=== PATIENT | female | born 1970 | race Hispanic/Latino ===

== ENCOUNTER → 2018-03-27 | Outpatient (CLI) | payer OTHER ==
[~2018-03-27] MED LIST: DIVA250T4 PO
== END | disposition home or self-care (01) ==
LOC: RAH 08:35
PROVIDERS: ATTEND Physical Medicine & Rehabilitation
DX: M72.2 Plantar fascial fibromatosis (principal)
CPT/HCPCS: 73650

== ENCOUNTER → 2018-09-17 | Outpatient (CLI) | payer OTHER | END | disposition home or self-care (01) | LOC: RAH 16:11 | PROVIDERS: ATTEND Physical Medicine & Rehabilitation | DX: M47.26 Other spondylosis with radiculopathy, lumbar region (principal) | CPT/HCPCS: 72100 ==

== ENCOUNTER → 2018-10-09 | Outpatient (CLI) | payer OTHER | END | disposition home or self-care (01) | LOC: RAH 16:20 | PROVIDERS: ATTEND Anesthesiology Pain Medicine | DX: M72.2 Plantar fascial fibromatosis (principal) | CPT/HCPCS: 73650 ==

== ENCOUNTER → 2019-01-14 | Outpatient (CLI) | payer OTHER | END | disposition home or self-care (01) | LOC: RAH 09:49 | PROVIDERS: ATTEND Nurse Practitioner Adult Health | DX: Z12.31 Encounter for screening mammogram for malignant neoplasm of breast (principal) | CPT/HCPCS: 77067 ==

== ENCOUNTER 2019-05-07 21:57 | Emergency (ER) | payer OTHER ==
[2019-05-07] MEDS ORDERED: ONDANSETRON HCL 4 MG/2 ML VIAL ONE (22:23)
[2019-05-07 22:33] LABS: BASOPHILS % (AUTO) 0.7 % (0.0-5.0); EOSINOPHILS % (AUTO) 1.1 % (0.0-8.0); MEAN CORPUSCULAR HEMOGLOBIN 30.6 pg (27.0-33.0); MEAN CORPUSCULAR HGB CONC 33.6 g/dL (32.0-36.0); MEAN CORPUSCULAR VOLUME 90.8 fL (79-99); MONOCYTES % (AUTO) 6.7 % (3.0-13.0); NEUTROPHILS % (AUTO) 50.5 % (40.0-77.0); PLATELET COUNT (AUTO) 266 K/uL (130-400); RED BLOOD CELL COUNT(AUTO) 4.18 MIL/uL (4.00-5.50); RED CELL DISTRIBUTION WIDTH 14.4 % (11.0-15.5); WHITE BLOOD COUNT (AUTO) 9.1 K/uL (4.8-10.8)
[2019-05-07 22:37] LABS: CREATININE 0.5 mg/dL (0.5-1.5); POTASSIUM 3.6 mmol/L (3.5-5.1)
[2019-05-07 22:41] LABS: ALBUMIN 3.3 g/dL (3.5-5.0); BILIRUBIN,TOTAL 0.5 mg/dL (0.2-1.0); TOTAL PROTEIN, SERUM 7.4 g/dL (6.0-8.3)
[2019-05-07] MEDS ORDERED: MAG HYDROX/AL HYDROX/SIMETH ES 30 ML SUSP UDCUP ONE (23:30)
[2019-05-07] MEDS ORDERED: LIDOCAINE HCL 2% VISCOUS 15 ML UDCUP ONE (23:30)
[2019-05-07] MEDS ORDERED: FAMOTIDINE/PF 20 MG/2 ML VIAL IV ONE (23:31)
[2019-05-08] MEDS ORDERED: ONDA4TAB4 PO (16:48)
[2019-05-09] MEDS ORDERED: SUCR1TAB2 PO (09:55)
[2019-05-09] MEDS ORDERED: ACET-2743 PO (09:55)
[2019-05-09] MEDS ORDERED: ESOM40CA PO (09:55)
== END 2019-05-08 00:18 | disposition home or self-care (01) ==
LOC: EDH 21:57
DX: K29.70 Gastritis, unspecified, without bleeding (principal); Z90.49 Acquired absence of other specified parts of digestive tract; Z88.5 Allergy status to narcotic agent; Z88.8 Allergy status to other drugs, medicaments and biological substances
CPT/HCPCS: 36415; 80053; 83690; 84484; 85025; 93005; 96374; 96375; 99285; J2405; J3490

== ENCOUNTER 2019-05-09 07:52 | Day surgery (SDC) | payer OTHER ==
[2019-05-09] VITALS (7 sets, daily range): BP systolic 126–143; BP diastolic 71–85
[~2019-05-09] VITALS: Ht 160 cm; Wt 161.5 kg
[~2019-05-09 07:52] MED LIST changes: +ONDA4TAB4 PO; +SODIUM CHLORIDE 0.9% 1000ML 1,000 ML IV ONE
[2019-05-09] MEDS ORDERED: SUCR1TAB2 PO (09:55)
[2019-05-09] MEDS ORDERED: ESOM40CA PO (09:55)
[2019-05-09] MEDS ORDERED: ACET-2743 PO (09:55)
[2019-05-09] MEDS ORDERED: PROPOFOL 10 MG/ML 20ML VIAL IV ONE (09:56)
[2019-05-09] MEDS ORDERED: MIDAZOLAM HCL 1 MG/ML 2ML VIAL ONE (09:56)
--- NOTE | 2019-05-09 10:35 | NUR ---
dc pt dc home via wc, no distress noted, pt denied any pain or discomforts. pt accompanied by spouse. dc instructions reinforced at this time. both verbalized understanding.
== END 2019-05-09 10:35 | disposition home or self-care (01) ==
LOC: ENDO 07:52 → DAH 07:52 → ENDO 10:35 → EDSTATUS 16:08
PROVIDERS: ATTEND Internal Medicine Gastroenterology
DX: R10.84 Generalized abdominal pain (principal); K31.89 Other diseases of stomach and duodenum; K22.8 Other specified diseases of esophagus; R12 Heartburn; K21.9 Gastro-esophageal reflux disease without esophagitis; G40.909 Epilepsy, unspecified, not intractable, without status epilepticus; E66.01 Morbid (severe) obesity due to excess calories; Z88.8 Allergy status to other drugs, medicaments and biological substances; Z88.5 Allergy status to narcotic agent; Z79.899 Other long term (current) drug therapy; Z72.89 Other problems related to lifestyle; Z98.890 Other specified postprocedural states; Z68.44 Body mass index [BMI] 60.0-69.9, adult; Z90.49 Acquired absence of other specified parts of digestive tract; Z80.0 Family history of malignant neoplasm of digestive organs
CPT/HCPCS: 43239; A4215; A4221; A4222; A4223; A4606; A4620; A4663; J2250; J2704; J7030

== ENCOUNTER 2025-01-29 06:13 | Day surgery (SDC) | payer OTHER ==
[2025-01-29] VITALS (10 sets, daily range): BP systolic 110–144; BP diastolic 63–81; PULSE 83–102; RESP 15–18; TEMP 97.3–97.5
[~2025-01-29] VITALS: Ht 160 cm; Wt 166.9 kg
[~2025-01-29 06:13] MED LIST changes: +CETI-89 PO; -DIVA250T4 PO; +HYDR25TA PO; +MULT-1203 PO; -ONDA4TAB4 PO; +OXCA600T18 PO; +PANT40TA54 PO; -SODIUM CHLORIDE 0.9% 1000ML 1,000 ML IV ONE
[2025-01-29] MEDS: 0.9%NACL 1000ML 1,000 ML IV ONE (06:49)
== END 2025-01-29 09:33 | disposition home or self-care (01) ==
LOC: ENDO 06:13 → DAH 06:13 → ENDO 09:33
PROVIDERS: ATTEND Internal Medicine
DX: Z12.11 Encounter for screening for malignant neoplasm of colon (principal); K62.1 Rectal polyp; K76.0 Fatty (change of) liver, not elsewhere classified; E66.01 Morbid (severe) obesity due to excess calories; F41.9 Anxiety disorder, unspecified; Z88.5 Allergy status to narcotic agent; Z90.49 Acquired absence of other specified parts of digestive tract; G40.909 Epilepsy, unspecified, not intractable, without status epilepticus; Z68.44 Body mass index [BMI] 60.0-69.9, adult; Z79.899 Other long term (current) drug therapy
CPT/HCPCS: 45380; 84703; 82948; 36415; J7030; J2704; A4620; A4215 ×2; A4223; A4222; A4221; A4663; A4606; J3490